=== PATIENT | male | born 1995 | race Caucasian/White ===

== ENCOUNTER 2019-04-19 12:42 | Emergency (ER) | payer OTHER ==
[~2019-04-19] VITALS: Ht 175.3 cm; Wt 81.7 kg
[~2019-04-19 12:42] MED LIST: DIFLUCAN200 MG PO; TERBINAFINE HCL30 GM TOP
[2019-04-19] MEDS ORDERED: NOHOMEMEDICATIONS (12:59)
[2019-04-19 13:04] LABS: URINE BLOOD 3+ (Negative); URINE CLARITY CLEAR; URINE COLOR YELLOW; URINE GLUCOSE-RANDOM NEGATIVE (Negative); URINE KETONES NEGATIVE (Negative); URINE LEUKOCYTES-REFLEX NEGATIVE (Negative); URINE NITRITE-REFLEX NEGATIVE (Negative); URINE PROTEIN 1+ (Negative); URINE SPECIFIC GRAVITY 1.025 (1.005-1.030); URINE UROBILINOGEN 0.2 E.U./dl (0.2-1.0)
[2019-04-19 13:14] LABS: ABSOLUTE BASOPHILS 0.1 thou/uL (0.0-0.2); ABSOLUTE EOSINOPHILS 0.2 thou/uL (0.0-0.7); ABSOLUTE LYMPHOCYTES 2.5 thou/uL (0.8-5.3); ABSOLUTE MONOCYTES 0.4 thou/uL (0.0-1.2); ABSOLUTE NEUTROPHILS 3.8 thou/uL (1.6-8.1); BASOPHILS 1.1 %; EOSINOPHILS 3.5 %; HEMATOCRIT 44.1 % (42.0-52.0); HEMOGLOBIN 15.3 gm/dL (14.0-18.0); LYMPHOCYTES 34.9 %; MCH 29.7 pg (26.0-34.0); MCHC 34.7 g/dL (28.0-37.0); MCV 85.6 fL (80.0-100.0); MPV 8.6 fl. (7.2-11.1); NUCLEATED RBCS 0 /100WBC; PLATELET COUNT* 202 thou/uL (150-400); POLYS 54.5 %; RBC 5.15 mil/uL (4.50-6.00); RDW-CV 12.8 % (10.5-14.5)
[2019-04-19 13:19] LABS: URINE BILIRUBIN 2+ (Negative)
[2019-04-19 13:21] LABS: ICTOTEST (BILI CONFIRMATORY) Positive (Negative)
[2019-04-19 13:26] LABS: BACTERIA-REFLEX 1-9 Few /HPF (None Seen); CASTS None Seen /LPF (None Seen); SQUAMOUS 0-3 Few /LPF (0-3); URINE RBC >20 Many /HPF (0-2); URINE WBC-REFLEX 6-15 Few /HPF (0-5)
[2019-04-19 13:27] LABS: CRYSTALS None Seen /LPF (None Seen)
[2019-04-19 13:27] LABS: CALCIUM 9.2 mg/dL (8.5-10.1); CREATININE 1.2 mg/dL (0.6-1.3); POTASSIUM 3.8 mmol/L (3.5-5.1)
[2019-04-19 13:36] LABS: ALBUMIN 4.3 g/dL (3.4-5.0); TOTAL BILIRUBIN 0.4 mg/dL (<0.1-1.0); TOTAL PROTEIN 7.4 g/dL (6.4-8.2)
[2019-04-19] MEDS ORDERED: FLOMAX0.4 MG PO (14:07)
[2019-04-19] MEDS ORDERED: BACTRIM DS TAB1 EACH PO (14:07)
[2019-04-19] MEDS ORDERED: NORCO 5-325 TA1 EAC1 PO (14:07)
[2019-04-19] MEDS ORDERED: ONDANSETRON ODT4 MG DISSOLVE (14:07)
[2019-04-19 14:21] VITALS: BP 140/71
== END 2019-04-19 14:21 | disposition home or self-care (01) ==
LOC: M.ERS 12:42
PROVIDERS: Physician Assistant
DX: N20.1 Calculus of ureter (principal); R10.31 Right lower quadrant pain

== ENCOUNTER 2019-07-15 14:58 | Emergency (ER) | payer OTHER ==
[~2019-07-15] VITALS: Ht 170.2 cm; Wt 81.7 kg
[~2019-07-15 14:58] MED LIST changes: +BACTRIM DS TAB1 EACH PO; +FLOMAX0.4 MG PO; +NOHOMEMEDICATIONS; +NORCO 5-325 TA1 EAC1 PO; +ONDANSETRON ODT4 MG DISSOLVE
[2019-07-15 15:40] LABS: URINE BILIRUBIN NEGATIVE (Negative); URINE BLOOD 1+ (Negative); URINE CLARITY CLEAR; URINE COLOR YELLOW; URINE GLUCOSE-RANDOM NEGATIVE (Negative); URINE KETONES 1+ (Negative); URINE LEUKOCYTES-REFLEX NEGATIVE (Negative); URINE NITRITE-REFLEX NEGATIVE (Negative); URINE PROTEIN NEGATIVE (Negative); URINE SPECIFIC GRAVITY 1.015 (1.005-1.030); URINE UROBILINOGEN 0.2 E.U./dl (0.2-1.0)
[2019-07-15 15:47] LABS: ABSOLUTE BASOPHILS 0.1 thou/uL (0.0-0.2); ABSOLUTE EOSINOPHILS 0.2 thou/uL (0.0-0.7); ABSOLUTE LYMPHOCYTES 1.9 thou/uL (0.8-5.3); ABSOLUTE MONOCYTES 0.5 thou/uL (0.0-1.2); ABSOLUTE NEUTROPHILS 12.2 thou/uL (1.6-8.1); BASOPHILS 0.8 %; HEMATOCRIT 45.4 % (42.0-52.0); HEMOGLOBIN 15.9 gm/dL (14.0-18.0); LYMPHOCYTES 12.8 %; MCH 29.4 pg (26.0-34.0); MCV 84.2 fL (80.0-100.0); MONOCYTES 3.6 %; NUCLEATED RBCS 0 /100WBC; PLATELET COUNT* 301 thou/uL (150-400); POLYS 81.8 %; RDW-CV 13.1 % (10.5-14.5); WBC 14.9 thou/uL (4.0-11.0)
[2019-07-15 15:52] LABS: MUCUS 0-3 Light strn/LPF (None Seen); SQUAMOUS 0-3 Few /LPF (0-3)
[2019-07-15 15:53] LABS: BACTERIA-REFLEX None Seen /HPF (None Seen); CASTS None Seen /LPF (None Seen); CRYSTALS None Seen /LPF (None Seen); URINE WBC-REFLEX 0-5 Rare /HPF (0-5)
[2019-07-15 15:54] LABS: CALCIUM 8.9 mg/dL (8.5-10.1); CREATININE 1.1 mg/dL (0.6-1.3); POTASSIUM 3.5 mmol/L (3.5-5.1)
[2019-07-15 15:58] LABS: ALBUMIN 4.7 g/dL (3.4-5.0); TOTAL BILIRUBIN 0.7 mg/dL (<0.1-1.0); TOTAL PROTEIN 8.1 g/dL (6.4-8.2)
[2019-07-15 16:13] LABS: INFLUENZA A ANTIGEN Negative (Negative); INFLUENZA B ANTIGEN Negative (Negative)
[2019-07-15] MEDS ORDERED: TYLENOL WITH CO1 TA1 PO (17:10)
[2019-07-15] MEDS ORDERED: ONDANSETRON ODT4 MG PO (17:10)
[2019-07-15 17:41] VITALS: BP 153/76
== END 2019-07-15 17:43 | disposition home or self-care (01) ==
LOC: M.ERS 14:58
PROVIDERS: Family Medicine; Physician Assistant
DX: R10.84 Generalized abdominal pain (principal); R11.2 Nausea with vomiting, unspecified; R51 Headache; R19.7 Diarrhea, unspecified

== ENCOUNTER 2019-08-30 12:33 | Emergency (ER) | payer OTHER ==
[~2019-08-30] VITALS: Ht 175.3 cm; Wt 81.7 kg
[~2019-08-30 12:33] MED LIST changes: +ONDANSETRON ODT4 MG PO; +TYLENOL WITH CO1 TA1 PO
[2019-08-30 13:03] LABS: ABSOLUTE BASOPHILS 0.1 thou/uL (0.0-0.2); ABSOLUTE EOSINOPHILS 0.1 thou/uL (0.0-0.7); ABSOLUTE LYMPHOCYTES 2.4 thou/uL (0.8-5.3); ABSOLUTE MONOCYTES 0.8 thou/uL (0.0-1.2); ABSOLUTE NEUTROPHILS 7.9 thou/uL (1.6-8.1); EOSINOPHILS 0.7 %; HEMATOCRIT 49.5 % (42.0-52.0); HEMOGLOBIN 17.4 gm/dL (14.0-18.0); LYMPHOCYTES 20.9 %; MCHC 35.3 g/dL (28.0-37.0); MONOCYTES 7.1 %; MPV 9.1 fl. (7.2-11.1); NUCLEATED RBCS 0 /100WBC; PLATELET COUNT* 277 thou/uL (150-400); POLYS 70.3 %; RBC 5.82 mil/uL (4.50-6.00); RDW-CV 13.2 % (10.5-14.5); WBC 11.2 thou/uL (4.0-11.0)
[2019-08-30 13:12] LABS: CALCIUM 9.4 mg/dL (8.5-10.1); CREATININE 1.1 mg/dL (0.6-1.3); POTASSIUM 3.5 mmol/L (3.5-5.1)
[2019-08-30 13:16] LABS: ALBUMIN 4.9 g/dL (3.4-5.0); TOTAL BILIRUBIN 1.2 mg/dL (<0.1-1.0); TOTAL PROTEIN 8.4 g/dL (6.4-8.2)
[2019-08-30] MEDS ORDERED: CIPRO500 MG PO (16:09)
[2019-08-30] MEDS ORDERED: TYLENOL WITH CO1 TA1 PO (16:09)
[2019-08-30] MEDS ORDERED: FLAGYL500 M1 PO (16:09)
[2019-08-30] MEDS ORDERED: ONDANSETRON ODT4 MG PO (16:11)
[2019-08-30 16:20] VITALS: BP 122/75
== END 2019-08-30 16:20 | disposition home or self-care (01) ==
LOC: M.ERS 12:33
PROVIDERS: Physician Assistant
DX: R10.32 Left lower quadrant pain (principal); R11.2 Nausea with vomiting, unspecified

== ENCOUNTER → 2019-09-08 | Outpatient (CLI) | payer OTHER ==
[~2019-09-08] MED LIST changes: +CIPRO500 MG PO; +FLAGYL500 M1 PO
== END ==
LOC: M.NUC 09-05 12:00
DX: K92.0 Hematemesis (principal); R63.4 Abnormal weight loss; R10.9 Unspecified abdominal pain

== ENCOUNTER → 2019-09-28 | Day surgery (SDC) | payer OTHER ==
[~2019-09-28] MED LIST changes: +HALDOL 0.5 MG0.5 MG PO; +ZOFRAN ODT4 MG PO
--- NOTE | ~2019-09-28 | PROC ---
[address] [address] PROCEDURE REPORT Name: CAPRICE ROMANO Room: [facility].#: [id number] Admission: 09/28/19 Attend Phys: Tenisha Roa MD Discharge: Date of : 89 Report #: [id number] THIS REPORT FOR: //name// cc: JESSICA - No family physician/PCP JESSICA - No family physician/PCP ~ THIS REPORT FOR: //name// For GI report, please see the Provation report in Perceptive 7 content. By: 1207Medical Records Staff TERESITA /CIARA
--- NOTE | 2019-10-02 13:08 | PATH ---
[address] [address] PATHOLOGY RPT PROCEDURE Name: SEAMUS ROMANO Room: [facility].#: [id number] Admission: 09/28/19 Date of : [birth year] Discharge: Report #: [id number] Path Case #: [id number] [facility] Accession Number: [id number] . 01 Material submitted: . PART A: stomach - BIOPSIES OF ANTRUM PART B: colon - RANDOM COLON BIOPSIES . 01 Clinical history: . Rule out H. pylori, gastritis . 02 Diagnosis: A. Gastric biopsy, "antrum biopsy, rule out H. pylori": - Mild chronic reactive gastropathy with mild chronic inflammation. - There is no evidence of acute cryptitis or malignancy. - The immunoperoxidase stains for H. pylori is negative. . B. Colonic mucosa, "random colon biopsies": - No obvious diagnostic changes. - There is no evidence of acute cryptitis, granulomas, adenomatous change, changes of microscopic colitis or malignancy. . (SHA:mateo; 10/02/2019) MBR 10/02/2019 1028 Local . 02 Electronically signed: . Rik Bell MD, Pathologist NPI- [id number] . 01 Gross description: . A. The specimen is received in formalin labeled "Seamus Romano, biopsies of antrum" and consists of 3 segments of pink-pham tissue measuring from 0.2 x 0.2 x 0.1 cm to 0.6 x 0.2 x 0.1 cm which are entirely submitted in A1. . B. The specimen is received in formalin labeled "Seamus Romano, random colon biopsies" and consists of multiple fragments of pham tissue measuring from 0.2 x 0.1 x 0.1 to 0.6 x 0.3 x 0.3 cm which are entirely submitted in B1. ([facility]; 09/29/2019) JFQ/KAILA 09/29/2019 1112 Local . 02 Pathologist provided ICD-10: K29.50, K31.9 . 02 CPT . 962153, 280485, C21875 Specimen Comment: A courtesy copy of this report has been sent to [phone] [place] [address] PATHOLOGY RPT PROCEDURE Name: SEAMUS ROMANO [facility] Room: [facility]#: [id number] Admission: 09/28/19 Date of : [birth year] Discharge: Report #: [id number] Path Case #: [id number] Specimen Comment: Report sent to Performed at: 01 [facility] [address] [id number] MD Kain Rosales MD Phone: [phone] Performed at: 02 [facility] [address] [id number] MD Ney Bautista MD Phone: [phone]
== END | disposition home or self-care (01) ==
LOC: M.SUR 06:48
DX: R10.30 Lower abdominal pain, unspecified (principal); K92.0 Hematemesis; R63.4 Abnormal weight loss; R19.7 Diarrhea, unspecified; R10.13 Epigastric pain; K31.9 Disease of stomach and duodenum, unspecified; K29.50 Unspecified chronic gastritis without bleeding; K64.8 Other hemorrhoids; G43.909 Migraine, unspecified, not intractable, without status migrainosus; Z87.442 Personal history of urinary calculi; Z98.890 Other specified postprocedural states; Z79.899 Other long term (current) drug therapy

== ENCOUNTER 2019-09-30 12:19 | Emergency (ER) | payer OTHER ==
[~2019-09-30] VITALS: Ht 175.3 cm; Wt 81.7 kg
[~2019-09-30 12:19] MED LIST changes: -HALDOL 0.5 MG0.5 MG PO; -ZOFRAN ODT4 MG PO
[2019-09-30 12:59] LABS: URINE BILIRUBIN NEGATIVE (Negative); URINE BLOOD NEGATIVE (Negative); URINE CLARITY CLEAR; URINE COLOR YELLOW; URINE GLUCOSE-RANDOM NEGATIVE (Negative); URINE KETONES 1+ (Negative); URINE LEUKOCYTES-REFLEX NEGATIVE (Negative); URINE NITRITE-REFLEX NEGATIVE (Negative); URINE PROTEIN TRACE (Negative); URINE SPECIFIC GRAVITY 1.025 (1.005-1.030); URINE UROBILINOGEN 0.2 E.U./dl (0.2-1.0)
[2019-09-30 13:02] LABS: HEMATOCRIT 46.8 % (42.0-52.0); HEMOGLOBIN 16.2 gm/dL (14.0-18.0); MCH 29.6 pg (26.0-34.0); MCHC 34.6 g/dL (28.0-37.0); MCV 85.6 fL (80.0-100.0); MPV 9.1 fl. (7.2-11.1); NUCLEATED RBCS 0 /100WBC; PLATELET COUNT* 233 thou/uL (150-400); RBC 5.47 mil/uL (4.50-6.00); RDW-CV 13.4 % (10.5-14.5); WBC 11.8 thou/uL (4.0-11.0)
[2019-09-30 13:15] LABS: CALCIUM 9.7 mg/dL (8.5-10.1); CREATININE 1.1 mg/dL (0.6-1.3); POTASSIUM 3.4 mmol/L (3.5-5.1)
[2019-09-30 13:20] LABS: ALBUMIN 4.9 g/dL (3.4-5.0); TOTAL BILIRUBIN 0.5 mg/dL (<0.1-1.0)
[2019-09-30 13:39] LABS: ABSOLUTE LYMPHOCYTES 1.1 thou/uL (0.8-5.3); ABSOLUTE MONOCYTES 0.4 thou/uL (0.0-1.2); ABSOLUTE NEUTROPHILS 10.4 thou/uL (1.6-8.1); PLATELET ESTIMATE ADEQUATE
[2019-09-30] MEDS ORDERED: HALDOL 0.5 MG0.5 MG PO (14:28)
[2019-09-30] MEDS ORDERED: ZOFRAN ODT4 MG PO (14:28)
[2019-09-30 14:54] VITALS: BP 152/91
== END 2019-09-30 14:40 | disposition home or self-care (01) ==
LOC: M.ERS 12:19
PROVIDERS: Nurse Practitioner Family; Personal Emergency Response Attendant
DX: R10.13 Epigastric pain (principal); R10.84 Generalized abdominal pain; R11.2 Nausea with vomiting, unspecified

== ENCOUNTER → 2020-03-25 | Outpatient (CLI) | payer OTHER ==
[~2020-03-25] MED LIST changes: +HALDOL 0.5 MG0.5 MG PO; +ZOFRAN ODT4 MG PO
== END ==
LOC: M.ULTRA 03-15 10:30
PROVIDERS: ATTEND Nurse Practitioner Family
DX: R10.84 Generalized abdominal pain (principal)

== ENCOUNTER 2020-04-11 21:50 | Emergency (ER) | payer OTHER ==
[~2020-04-11] VITALS: Ht 175.3 cm; Wt 81.7 kg
[2020-04-11] MEDS ORDERED: AMITRIPTYLINE H25 M4 PO (22:01)
[2020-04-11] MEDS ORDERED: HYOSCYAMINE0.125 MG PO (22:02)
[2020-04-11 22:26] LABS: MCH 29.2 pg (26.0-34.0); MCV 85.9 fL (80.0-100.0); MPV 8.4 fl. (7.2-11.1); NUCLEATED RBCS 0 /100WBC; PLATELET COUNT* 322 thou/uL (150-400); RBC 5.47 mil/uL (4.50-6.00); RDW-CV 12.9 % (10.5-14.5); WBC 12.9 thou/uL (4.0-11.0)
[2020-04-11 22:28] LABS: CALCIUM 9.6 mg/dL (8.5-10.1); CREATININE 1.3 mg/dL (0.6-1.3); POTASSIUM 3.7 mmol/L (3.5-5.1)
[2020-04-11 22:33] LABS: ALBUMIN 4.9 g/dL (3.4-5.0); TOTAL BILIRUBIN 0.5 mg/dL (<0.1-1.0); TOTAL PROTEIN 8.6 g/dL (6.4-8.2)
[2020-04-11 22:51] LABS: ABSOLUTE EOSINOPHILS 0.1 thou/uL (0.0-0.7); ABSOLUTE LYMPHOCYTES 0.8 thou/uL (0.8-5.3); ABSOLUTE MONOCYTES 0.3 thou/uL (0.0-1.2); ABSOLUTE NEUTROPHILS 11.7 thou/uL (1.6-8.1)
[2020-04-11 22:52] LABS: PLATELET ESTIMATE ADEQUATE
[2020-04-11 23:56] VITALS: BP 116/43
== END 2020-04-12 | disposition home or self-care (01) ==
LOC: M.ERS 21:50
PROVIDERS: Family Medicine
DX: R11.15 Cyclical vomiting syndrome unrelated to migraine (principal); F12.90 Cannabis use, unspecified, uncomplicated; R19.7 Diarrhea, unspecified; R10.84 Generalized abdominal pain; Z79.899 Other long term (current) drug therapy

== ENCOUNTER 2020-04-28 13:00 | Emergency (ER) | payer OTHER ==
[~2020-04-28] VITALS: Ht 175.3 cm; Wt 81.7 kg
[~2020-04-28 13:00] MED LIST changes: +AMITRIPTYLINE H25 M4 PO; +HYOSCYAMINE0.125 MG PO
[2020-04-28] MEDS ORDERED: HYDROCHLOROTHIA25 M2 PO (13:07)
[2020-04-28 14:37] VITALS: BP 141/70
== END 2020-04-28 14:38 | disposition home or self-care (01) ==
LOC: M.ERS 13:00
DX: R11.15 Cyclical vomiting syndrome unrelated to migraine (principal)

== ENCOUNTER 2020-05-01 22:26 | Emergency (ER) | payer OTHER ==
[~2020-05-01] VITALS: Ht 175.3 cm; Wt 77.1 kg
[~2020-05-01 22:26] MED LIST changes: +HYDROCHLOROTHIA25 M2 PO
[2020-05-01] MEDS ORDERED: ZESTRIL5 MG PO (22:39)
[2020-05-01] MEDS ORDERED: PROZAC 10 MG CA10 MG PO (22:40)
[2020-05-02] MEDS ORDERED: PROMS25 WY RECTAL (00:27)
[2020-05-02] MEDS ORDERED: PHENERGAN 25 MG25 MG PO (00:27)
[2020-05-02 00:48] VITALS: BP 124/56
== END 2020-05-02 00:48 | disposition home or self-care (01) ==
LOC: M.ERS 22:26
DX: R11.2 Nausea with vomiting, unspecified (principal); I10 Essential (primary) hypertension

== ENCOUNTER 2020-05-05 04:03 | Emergency (ER) | payer OTHER ==
[~2020-05-05] VITALS: Ht 175.3 cm; Wt 74.8 kg
[~2020-05-05 04:03] MED LIST changes: +PHENERGAN 25 MG25 MG PO; +PROMS25 WY RECTAL; +PROZAC 10 MG CA10 MG PO; +ZESTRIL5 MG PO
[2020-05-05 04:58] LABS: URINE BILIRUBIN NEGATIVE (Negative); URINE BLOOD NEGATIVE (Negative); URINE CLARITY CLEAR; URINE COLOR YELLOW; URINE GLUCOSE-RANDOM NEGATIVE (Negative); URINE KETONES TRACE (Negative); URINE LEUKOCYTES-REFLEX NEGATIVE (Negative); URINE NITRITE-REFLEX NEGATIVE (Negative); URINE PROTEIN NEGATIVE (Negative); URINE SPECIFIC GRAVITY 1.015 (1.005-1.030); URINE UROBILINOGEN 0.2 E.U./dl (0.2-1.0)
[2020-05-05 05:06] LABS: AMP/METHAMP Negative (Negative); BARBITURATES Negative (Negative); BENZODIAZEPINES Negative (Negative); COCAINE Negative (Negative); METHADONE Negative (Negative); OPIATES Negative (Negative); PCP Negative (Negative); THC POSITIVE (Negative)
[2020-05-05 05:19] LABS: HEMATOCRIT 44.6 % (42.0-52.0); HEMOGLOBIN 15.7 gm/dL (14.0-18.0); MCH 29.9 pg (26.0-34.0); MCHC 35.2 g/dL (28.0-37.0); MPV 8.4 fl. (7.2-11.1); RBC 5.25 mil/uL (4.50-6.00); RDW-CV 12.5 % (10.5-14.5); WBC 10.1 thou/uL (4.0-11.0)
[2020-05-05 05:33] LABS: CALCIUM 8.7 mg/dL (8.5-10.1); CREATININE 1.1 mg/dL (0.6-1.3)
[2020-05-05 05:34] LABS: POTASSIUM 2.9 mmol/L (3.5-5.1)
[2020-05-05 05:37] LABS: ALBUMIN 4.3 g/dL (3.4-5.0); TOTAL PROTEIN 7.1 g/dL (6.4-8.2)
[2020-05-05] MEDS ORDERED: ZOFRAN ODT4 MG PO (05:53)
[2020-05-05] MEDS ORDERED: HALDOL 0.5 MG0.5 MG PO (05:53)
[2020-05-05] MEDS ORDERED: ATIVAN1 M1 PO (05:53)
[2020-05-05 06:28] VITALS: BP 101/89
== END 2020-05-05 06:29 | disposition home or self-care (01) ==
LOC: M.ERS 04:03
PROVIDERS: Personal Emergency Response Attendant
DX: E87.6 Hypokalemia (principal); R11.2 Nausea with vomiting, unspecified; R10.9 Unspecified abdominal pain; G40.909 Epilepsy, unspecified, not intractable, without status epilepticus; I10 Essential (primary) hypertension; Z79.899 Other long term (current) drug therapy

== ENCOUNTER → 2020-05-22 | Outpatient (CLI) | payer OTHER ==
[~2020-05-22] MED LIST changes: +ATIVAN1 M1 PO
--- NOTE | ~2020-05-22 | EEG ---
[address] [address] EEG STUDY REPORT Name: CAPRICE ROMANO RELIGION Room: [facility]#: [id number] Admission: 05/22/20 Attend Phys: Titus Shaw MD Discharge: Date of : [birth year] Report #: [id number] THIS REPORT FOR: //name// CC: NICOLÁS Shaw DATE OF SERVICE: 05/22/2020 This patient is being evaluated for the possibility of seizure. EEG was done by placing the electrode by standard 10-20 system of electrode placement. Both referential and sequential montages were used for recording. Background activity in this patient's EEG is about 10 Hz and 40 microvolts. This patient goes to sleep and that is associated with bilateral slowing and vertex sharp waves. Throughout the record, no active epileptiform activity was noticed. IMPRESSION: This patient's EEG does not demonstrate any clear-cut epileptiform activity and was unremarkable. It might be mentioned that EEG can be normal in a patient with seizure disorder and further workup can be done if the history for seizures is convincing. By: 1826 [id number] Shaw MD /nt
[2020-05-22 14:18] LABS: ABSOLUTE BASOPHILS 0.1 thou/uL (0.0-0.2); ABSOLUTE EOSINOPHILS 0.3 thou/uL (0.0-0.7); ABSOLUTE LYMPHOCYTES 1.9 thou/uL (0.8-5.3); ABSOLUTE MONOCYTES 0.4 thou/uL (0.0-1.2); ABSOLUTE NEUTROPHILS 3.7 thou/uL (1.6-8.1); EOSINOPHILS 5.3 %; HEMATOCRIT 43.5 % (42.0-52.0); HEMOGLOBIN 14.9 gm/dL (14.0-18.0); LYMPHOCYTES 29.1 %; MCH 29.9 pg (26.0-34.0); MCHC 34.2 g/dL (28.0-37.0); MCV 87.4 fL (80.0-100.0); MONOCYTES 6.2 %; MPV 7.6 fl. (7.2-11.1); NUCLEATED RBCS 0 /100WBC; PLATELET COUNT* 259 thou/uL (150-400); POLYS 58.4 %; RBC 4.98 mil/uL (4.50-6.00); RDW-CV 12.8 % (10.5-14.5); WBC 6.4 thou/uL (4.0-11.0)
[2020-05-22 14:34] LABS: ALBUMIN 4.1 g/dL (3.4-5.0); CALCIUM 8.7 mg/dL (8.5-10.1); CREATININE 0.9 mg/dL (0.6-1.3); POTASSIUM 4.4 mmol/L (3.5-5.1); TOTAL BILIRUBIN 0.2 mg/dL (<0.1-1.0); TOTAL PROTEIN 7.6 g/dL (6.4-8.2)
== END ==
LOC: M.CRD 12:29
PROVIDERS: ATTEND Psychiatry & Neurology Neuromuscular Medicine
DX: Z87.898 Personal history of other specified conditions (principal); Z86.59 Personal history of other mental and behavioral disorders

== ENCOUNTER 2020-07-29 19:40 | Emergency (ER) | payer OTHER ==
[~2020-07-29] VITALS: Ht 172.7 cm; Wt 79.4 kg
[2020-07-29 20:07] LABS: HEMATOCRIT 37.9 % (42.0-52.0); HEMOGLOBIN 12.9 gm/dL (14.0-18.0); MCH 29.8 pg (26.0-34.0); MCHC 33.9 g/dL (28.0-37.0); MCV 87.7 fL (80.0-100.0); MPV 7.7 fl. (7.2-11.1); NUCLEATED RBCS 0 /100WBC; PLATELET COUNT* 282 thou/uL (150-400); RBC 4.33 mil/uL (4.50-6.00); WBC 7.1 thou/uL (4.0-11.0)
[2020-07-29 20:17] LABS: CALCIUM 8.5 mg/dL (8.5-10.1); POTASSIUM 4.2 mmol/L (3.5-5.1)
[2020-07-29 20:22] LABS: ALBUMIN 3.5 g/dL (3.4-5.0); TOTAL BILIRUBIN 0.1 mg/dL (<0.1-1.0); TOTAL PROTEIN 6.2 g/dL (6.4-8.2)
[2020-07-29 20:35] VITALS: BP 115/56
[2020-07-29 20:44] LABS: ABSOLUTE EOSINOPHILS 0.5 thou/uL (0.0-0.7); ABSOLUTE LYMPHOCYTES 3.3 thou/uL (0.8-5.3); ABSOLUTE MONOCYTES 0.5 thou/uL (0.0-1.2); ABSOLUTE NEUTROPHILS 2.8 thou/uL (1.6-8.1)
[2020-07-29 20:45] LABS: PLATELET ESTIMATE ADEQUATE
--- NOTE | 2020-07-31 14:05 | EKG ---
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
== END 2020-07-29 20:36 | disposition home or self-care (01) ==
LOC: M.ERS 19:40
PROVIDERS: Family Medicine
DX: R56.9 Unspecified convulsions (principal); I10 Essential (primary) hypertension

== ENCOUNTER 2021-01-20 16:12 | Emergency (ER) | payer BC ==
[~2021-01-20] VITALS: Ht 170.2 cm; Wt 77.1 kg
[2021-01-20 16:30] VITALS: BP 120/77
[2021-01-20] MEDS ORDERED: PROZAC20 M1 PO (16:34)
[2021-01-20 16:51] LABS: ABSOLUTE BASOPHILS 0.1 thou/uL (0.0-0.2); ABSOLUTE LYMPHOCYTES 1.3 thou/uL (0.8-5.3); ABSOLUTE MONOCYTES 0.9 thou/uL (0.0-1.2); ABSOLUTE NEUTROPHILS 7.8 thou/uL (1.6-8.1); BASOPHILS 0.7 %; EOSINOPHILS 0.1 %; HEMATOCRIT 41.3 % (42.0-52.0); HEMOGLOBIN 14.5 gm/dL (14.0-18.0); LYMPHOCYTES 13.3 %; MCH 30.1 pg (26.0-34.0); MCHC 35.2 g/dL (28.0-37.0); MCV 85.6 fL (80.0-100.0); MONOCYTES 8.5 %; MPV 8.5 fl. (7.2-11.1); NUCLEATED RBCS 0 /100WBC; PLATELET COUNT* 293 thou/uL (150-400); POLYS 77.4 %; RBC 4.82 mil/uL (4.50-6.00); RDW-CV 12.7 % (10.5-14.5); WBC 10.1 thou/uL (4.0-11.0)
[2021-01-20 17:00] LABS: CALCIUM 9.3 mg/dL (8.5-10.1); CREATININE 1.4 mg/dL (0.6-1.3); POTASSIUM 3.4 mmol/L (3.5-5.1)
[2021-01-20 17:05] LABS: ALBUMIN 5.2 g/dL (3.4-5.0); TOTAL BILIRUBIN 0.8 mg/dL (<0.1-1.0)
[2021-01-20 20:08] VITALS: BP 122/63
--- NOTE | 2021-01-21 09:29 | EKG ---
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 : 1995 Requested By: Jason Aburto Order Number: [id number] MD: Favio Marshall Measurements Intervals [place] Rate: 92 P: 63 IA: 132 QRS: 58 QRSD: 88 T: 58 QT: 355 QTc: 440 Interpretive Statements Sinus rhythm Probable left ventricular hypertrophy ST elev, probable normal early repol pattern Compared to ECG 07/29/2020 19:44:06 ST (T wave) deviation now present Electronically Signed On 01-21-2021 9:29:38 CDT by Favio Marshall [email or web address] <ELECTRONICALLY SIGNED> By: Kay Marshall MD, [facility] 01/21/21 0929 165 50 Kay Marshall MD, [facility] /EPI
== END 2021-01-20 20:11 | disposition left against medical advice (07) ==
LOC: M.ERS 16:12 → M.TBA-ER 18:31 → M.ERS 20:11
PROVIDERS: Emergency Medicine Emergency Medical Services
DX: R56.9 Unspecified convulsions (principal); R55 Syncope and collapse; I10 Essential (primary) hypertension; Z79.899 Other long term (current) drug therapy